=== PATIENT | female | born 1985 | race Caucasian/White ===

== ENCOUNTER 2018-02-22 15:14 | Emergency (ER) | payer OTHER ==
[2018-02-22] MEDS ORDERED: NA CHLORIDE 0.9% 1,000 ML ONE (15:30)
[2018-02-22 15:50] LABS: Absolute Lymphocytes (CBC) 2.4 K/uL (0.7-4.9); Absolute Monocytes 0.3 K/uL (0.1-1.3); Absolute Neutrophil 3.6 K/uL (1.8-8.0); Basophils % 0.8 % (0-1.3); Lymphocytes % 37.1 % (15.3-44.8); MPV 7.9 fL (7.6-11.3); Monocytes % 4.3 % (3.3-12.3); RBC Red Blood Cell Count 4.56 M/uL (3.86-4.86)
[2018-02-22 16:03] LABS: BUN Blood Urea Nitrogen 12 mg/dL (7-18); Bicarbonate 26 mmol/L (21-32); Glucose Level 94 mg/dL (74-106); Potassium 3.9 mmol/L (3.5-5.1); Sodium Level 142 mmol/L (136-145)
[2018-02-22 16:55] LABS: Urine Bacteria NONE SEEN /HPF (<20); Urine Culture Reflex Order NOT NEEDED; Urine RBC NONE SEEN /HPF (NONE SEEN)
--- NOTE | 2018-02-22 16:57 | EDPHYS ---
Physician Documentation [facility] Name: Lianne Teresa Age: 32 yrs Sex: Female : 1985 Arrival Date: 02/22/2018 Time: 15:11 Bed 6 Private MD: ED Physician Willy Martinez HPI: 02/22 15:54 This 32 yrs old Female presents to ER via EMS with complaints of Syncope. rn 15:54 The patient has experienced syncope. Onset: The symptoms/episode began/occurred just rn prior to arrival. Duration: This was a single episode. Associated injury: The patient did not suffer any apparent associated injury. Associated signs and symptoms: Pertinent positives: lightheadedness, Pertinent negatives: abdominal pain, chest pain, confusion, diaphoresis, headache, not seizure, shortness of breath, vomiting, weakness. Current symptoms: Currently, the patient is not experiencing any symptoms. The patient has not experienced similar symptoms in the past. Reports gave blood, stood up to get juice, got lightheaded and warm, then passed out, center called 911, now feels better, no pain, felt fine prior to giving blood. . 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 - Social history:: Smoking status: Patient/guardian denies using tobacco. - Ebola Screening: : No symptoms or risks identified at this time. - Family history:: not pertinent. - Hospitalizations: : No recent hospitalization is reported. ROS: 15:54 Constitutional: Negative for fever, chills, and weight loss, Eyes: Negative for injury, rn pain, redness, and discharge, Cardiovascular: Negative for chest pain, palpitations, and edema, Respiratory: Negative for shortness of breath, cough, wheezing, and pleuritic chest pain, Abdomen/GI: Negative for abdominal pain, nausea, vomiting, diarrhea, and constipation, MS/Extremity: Negative for injury and deformity, Skin: Negative for injury, rash, and discoloration, Neuro: Negative for headache, weakness, numbness, tingling, and seizure. Exam: 15:54 Constitutional: This is a well developed, well nourished patient who is awake, alert, rn and in no acute distress. Requesting food. Head/Face: Normocephalic, atraumatic. Eyes: Pupils equal round and reactive to light, extra-ocular motions intact. Lids and lashes normal. Conjunctiva and sclera are non-icteric and not injected. Cornea within normal limits. Periorbital areas with no swelling, redness, or edema. ENT: MMM, no stridor Cardiovascular: Regular rate and rhythm with a normal S1 and S2. No gallops, murmurs, or rubs. No JVD. No pulse deficits. Respiratory: Lungs have equal breath sounds bilaterally, clear to auscultation, No increased work of breathing, no retractions or nasal flaring. Abdomen/GI: Soft, non-tender, No evidence of tenderness throughout. Skin: Warm, dry with normal turgor. Normal color with no rashes, no lesions, and no evidence of cellulitis. MS/ Extremity: Pulses equal, no cyanosis. Neurovascular intact. Full, normal range of motion. Equal circumference. Neuro: Awake and alert, GCS 15, oriented to person, place, time, and situation. Cranial nerves II-XII grossly intact. Motor strength 5/5 in all extremities. Sensory grossly intact. Cerebellar exam normal. Vital Signs: 15:17 BP 96 / 73 Supine; Pulse 80 MON; Resp 18 S; Temp 98.0(O); Pulse Ox 100% on R/A; eb 15:19 Weight 90.72 kg; Height 5 ft. 3 in. (160.02 cm); Pain 0/10; sv 16:00 BP 107 / 72; Pulse 86; Resp 16; Pulse Ox 97% ; sv 16:50 BP 103 / 73; Pulse 91; Resp 16; Pulse Ox 100% ; sv 15:19 Body Mass Index 35.43 (90.72 kg, 160.02 cm) sv MDM: 15:13 Patient medically screened. jr8 16:55 Differential Diagnosis: idiopathic syncope, vasovagal episode. Data reviewed: vital rn signs, nurses notes, lab test result(s), EKG, and as a result, I will discharge patient. Counseling: I had a detailed discussion with the patient and/or guardian regarding: the historical points, exam findings, and any diagnostic results supporting the discharge/admit diagnosis, lab results, the need for outpatient follow up, to return to the emergency department if symptoms worsen or persist or if there are any questions or concerns that arise at home. Response to treatment: the patient's symptoms have markedly improved after treatment, the patient's symptoms have resolved after treatment, the patient's condition has returned to base line, the patient is now symptom free, and as a result, I will discharge patient. Special discussion: I discussed with the patient/guardian in detail that at this point there is no indication for admission to the hospital. It is understood, however, that if the symptoms persist or worsen the patient needs to return immediately for re-evaluation. 02/22 15:18 Order name: CBC with Diff rn 02/22 15:18 Order name: Basic Metabolic Panel rn 02/22 15:18 Order name: Urine Microscopic Only rn 02/22 15:19 Order name: CBC with Automated Diff; Complete Time: 16:54 EDMS 02/22 15:19 Order name: Basic Metabolic Panel; Complete Time: 16:54 EDMD 02/22 15:19 Order name: Urine Microscopic Only; Complete Time: 16:56 EDMD 02/22 15:18 Order name: EKG; Complete Time: 15:19 rn 02/22 15:18 Order name: EKG - Nurse/Tech; Complete Time: 15:43 rn 02/22 15:18 Order name: IV Start; Complete Time: 16:12 rn 02/22 15:18 Order name: Urine Test (obtain specimen); Complete Time: 17:09 rn 02/22 15:56 Order name: Glucose, Ancillary Testing; Complete Time: 16:54 EDMD 02/22 17:12 Order name: Urine Dipstick--Ancillary (enter results) bd Administered Medications: 15:40 Drug: NS 0.9% 1000 ml Route: IV; Rate: 1000 ml; Site: left hand; sv 16:45 Follow up: Response: No adverse reaction; IV Status: Completed infusion; IV Intake: sv 1000ml Disposition: 02/22/18 16:56 Discharged to Home. Impression: Syncope and collapse. - Condition is Stable. - Discharge Instructions: Syncope. - Medication Reconciliation Form, Thank You Letter, Antibiotic Education, Prescription Opioid Use form. - Follow up: Private Physician; When: As needed; Reason: Recheck today's complaints, Re-evaluation by your physician. - Problem is new. - Symptoms have improved. Signatures: Dispatcher [employer] Lianne Metcalf RN JV Willy Martinez MD MD rn Roszak, Josh, PA PA jr8 Lelo Campos RN RN tw2 Corrections: (The following items were deleted from the chart) 17:42 16:56 02/22/2018 16:56 Discharged to Home. Impression: Syncope and collapse. Condition tw2 is Stable. Forms are Medication Reconciliation Form, Thank You Letter, Antibiotic Education, Prescription Opioid Use. Follow up: Private Physician; When: As needed; Reason: Recheck today's complaints, Re-evaluation by your physician. Problem is new. Symptoms have improved. rn
--- NOTE | 2018-02-22 16:57 | ER ---
Nurse's Notes [facility] Name: Lianne Teresa Age: 32 yrs Sex: Female : 1985 Arrival Date: 02/22/2018 Time: 15:11 Bed 6 Private MD: Diagnosis: Syncope and collapse Presentation: 02/22 15:09 Presenting complaint: EMS states: was donating blood, stood up and had a syncopal sv episode for about 5-6 mins. On EMS arrival, pt was (+) TILT, BP now 102/60, SR, BS-96, 22G hand, IVF infusing. Transition of care: patient was not received from another setting of care. Onset of symptoms was February 22, 2018. Risk Assessment: Do you want to hurt yourself or someone else? Patient reports no desire to harm self or others. Initial Sepsis Screen: Does the patient meet any 2 criteria? No. Patient's initial sepsis screen is negative. Does the patient have a suspected source of infection? No. Patient's initial sepsis screen is negative. Care prior to arrival: Medication(s) given: Normal saline infusion, IV initiated. 22 GA, hand, Glucose check: 96. 15:09 Method Of Arrival: EMS: [facility] sv 15:09 Acuity: NOLVIA 2 sv Triage Assessment: 15:10 General: Appears in no apparent distress. comfortable, obese, Behavior is calm, sv cooperative, appropriate for age. Pain: Denies pain. EENT: No signs and/or symptoms were reported regarding the EENT system. Neuro: Level of Consciousness is awake, alert, obeys commands, Oriented to person, place, time, situation, Moves all extremities. Full function Reports "feeling tired". Respiratory: Respiratory effort is even, unlabored, Respiratory pattern is regular, symmetrical. Derm: Skin is pale. 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 - Social history:: Smoking status: Patient/guardian denies using tobacco. - Ebola Screening: : No symptoms or risks identified at this time. - Family history:: not pertinent. - Hospitalizations: : No recent hospitalization is reported. Screenin:20 Abuse screen: Denies threats or abuse. Denies injuries from another. Nutritional sv screening: No deficits noted. Tuberculosis screening: No symptoms or risk factors identified. Fall Risk None identified. Assessment: 15:40 Reassessment: Patient appears in no apparent distress at this time. Patient and/or sv family updated on plan of care and expected duration. Pain level reassessed. Patient is alert, oriented x 3, equal unlabored respirations, skin warm/dry/pink. 17:42 Reassessment: Patient appears in no apparent distress at this time. Patient and/or tw2 family updated on plan of care and expected duration. Pain level reassessed. Patient is alert, oriented x 3, equal unlabored respirations, skin warm/dry/pink. Patient states feeling better. Vital Signs: 15:17 BP 96 / 73 Supine; Pulse 80 MON; Resp 18 S; Temp 98.0(O); Pulse Ox 100% on R/A; eb 15:19 Weight 90.72 kg; Height 5 ft. 3 in. (160.02 cm); Pain 0/10; sv 16:00 BP 107 / 72; Pulse 86; Resp 16; Pulse Ox 97% ; sv 16:50 BP 103 / 73; Pulse 91; Resp 16; Pulse Ox 100% ; sv 15:19 Body Mass Index 35.43 (90.72 kg, 160.02 cm) sv ED Course: 15:09 Maintain EMS IV. Dressing intact. Site clean \\T\\ dry. Gauge \\T\\ site: 22G left hand. sv 15:11 Patient arrived in ED. sv 15:11 Lianne Burnette RN is Primary Nurse. sv 15:13 Rodolfo Adrian PA is PHCP. jr8 15:13 Willy Martinez MD is Attending Physician. jr8 15:14 Triage completed. sv 15:19 Arm band placed on. sv 15:20 Patient has correct armband on for positive identification. Bed in low position. Side sv rails up X2. Pulse ox on. NIBP on. Door closed. Warm blanket given. Head of bed elevated. 15:24 EKG done, by ED staff, reviewed by Willy Martinez MD. eb 15:35 Initial lab(s) drawn, by nh, sent to lab. eb 15:43 Basic Metabolic Panel Sent. eb 15:43 CBC with Automated Diff Sent. eb 16:12 CBC with Diff Sent. sv 16:12 Basic Metabolic Panel Sent. sv 17:08 Urine Microscopic Only Sent. sv 17:41 No provider procedures requiring assistance completed. IV discontinued, intact, tw2 bleeding controlled, No redness/swelling at site. Pressure dressing applied. Administered Medications: 15:40 Drug: NS 0.9% 1000 ml Route: IV; Rate: 1000 ml; Site: left hand; sv 16:45 Follow up: Response: No adverse reaction; IV Status: Completed infusion; IV Intake: sv 1000ml Intake: 16:45 IV: 1000ml; Total: 1000ml. sv Outcome: 16:56 Discharge ordered by . rn 17:42 Discharged to home ambulatory, with significant other. tw2 17:42 Condition: stable 17:42 Discharge instructions given to patient, significant other, Instructed on discharge instructions, follow up and referral plans. Demonstrated understanding of instructions, follow-up care. 17:42 Patient left the ED. tw2 Signatures: Lianne Burnette RN RN Willy Martinez MD MD rn Roszak, Josh, PA PA 8 Lelo Campos RN RN tw2 Penny Osorio
[2018-02-22 17:25] LABS: Urine Blood TRACE (NEG); Urine Glucose NEGATIVE (NEG); Urine Protein 1+ (NEG); Urine Specific Gravity 1.025 (1.005-1.030)
--- NOTE | 2018-02-22 18:55 | EKG ---
Test Date: 2018-02-22 Test Time: 15:24:04 Diving Board Assembler: ZHAO MEASUREMENT RESULTS: Intervals: Rate: 72 MA: 138 QRSD: 82 QT: 392 QTc: 429 [place]: P: 48 MA: 138 QRS: 64 T: 62 INTERPRETIVE STATEMENTS: Normal sinus rhythm Normal ECG No previous ECG available for comparison Electronically Signed On 02-22-18 18:54:41 [employer] ENGINE[employer] by Anderson Aldridge
[2018-02-23 12:55] LABS: Urine Specific Gravity 1.025 (1.005-1.030)
== END 2018-02-22 17:42 | disposition home or self-care (01) ==
LOC: ER 15:14
DX: R55 Syncope and collapse (principal)
CPT/HCPCS: 36415; 80048; 81003; 81015; 82962; 85025; 93005; 96360; 99284; J7030

== ENCOUNTER 2020-02-14 07:13 | Observation (INO) | payer OTHER ==
--- OUTSIDE RECORDS SUMMARY | 2020-02-14 07:16 | XMS REPORT | Summary of Care ---
:1985 Author Organization [facility] - Health Address [address] [place] [address] Care Team Providers Name Role Phone Luiz Hopson MD Primary Care Provider Encounter Details Date Type Department Care Team Description 02/01/2020 Orders Only [facility] Doctor Unassigned, No [address] [facility] [place] [place] [address] [address] [place] [address] Allergies No Known Allergiesdocumented as of this encounter (statuses as of 02/01/2020) Medications Medication Sig Dispensed Refills Start Date End Date Status TRINTELLIX 10 mg Take 1 tablet by 90 tablet 1 09/15/2019 Active TabIndications: mouth every Chronic depression morning. STOP FLUOXETINE. documented as of this encounter (statuses as of 02/01/2020) Active Problems Problem Noted Date Chronic anxiety 09/19/2019 Chronic depression 09/19/2019 PCOS (polycystic ovarian syndrome) 08/16/2019 Psychogenic nonepileptic seizure documented as of this encounter (statuses as of 02/01/2020) Social History Tobacco Use Types Packs/Day Years Used Date Never Smoker Smokeless Tobacco: Never Used Alcohol Use Drinks/Week oz/Week Comments Yes occasional Sex Assigned at Date Recorded Not on file COVID-19 Exposure Response Date Recorded In the last month, have you been in contact with No / Unsure 02/01/2020 10:27 AM DIABETES NURSE someone who was confirmed or suspected to have Coronavirus / COVID-19? documented as of this encounter Last Filed Vital Signs Not on filedocumented in this encounter Plan of Treatment Health Maintenance Due Date Last Done Comments VARICELLA VACCINES (1 of 2 - 10/31/1987 2-dose childhood series) DTaP,Tdap,and Td Vaccines (1 2005 - Tdap) PAP SMEAR 10/31/2007 INFLUENZA VACCINE (#1) 2019 Depression Screening 08/15/2020 08/16/2019, 08/16/2019 PNEUMOCOCCAL 0-64 YEARS Aged Out No longe r eligible based COMBINED SERIES on patient's age to complete this to [facility] documented as of this encounter Procedures Procedure Name Priority Date/Time Associated Diagnosis Comme nts CONSENT/REFUSAL FOR Routine 02/01/2020 11:25 AM DIABETES NURSE DIAGNOSIS AND TREATMENT documented in this encounter Results Not on filedocumented in this encounter Insurance Payer Benefit Plan / Subscriber ID Effective Dates Phone Addre ss Type Group [facility] [id number] [facility] t S documented as of this encounter
--- OUTSIDE RECORDS SUMMARY | 2020-02-14 07:16 | XMS REPORT | Summary of Care ---
:1985 Author Organization [facility] Address [address] [place] [id number] Care Team Providers Name Role Phone Luiz Hopson MD Primary Care Provider Reason for Visit Reason Comments Abdominal Pain Diarrhea dark stool Encounter Details Date Type Department Care Team Description 02/01/2020 Office Visit [facility] Family Luiz Hopson (Primary Dx); Medicine - Hernando Mcwilliams MD Upper abdominal pain [address] [place] [address] DR John HEATH, GARO Robbins [phone] Allergies No Known Allergiesdocumented as of this [...] with No / Unsure 02/01/2020 10:27 AM ASSESSMENT DIRECTOR someone who was confirmed or suspected to have Coronavirus / COVID-19? documented as of this encounter Last Filed Vital Signs Vital Sign Reading Time Taken Comments Blood Pressure 114/74 02/01/2020 10:40 AM ASSESSMENT DIRECTOR Pulse 80 02/01/2020 10:40 AM ASSESSMENT DIRECTOR Temperature 36.4 C (97.5 F) 02/01/2020 10:40 AM ASSESSMENT DIRECTOR Respiratory Rate - - Oxygen Saturation - - Inhaled Oxygen Concentration - - Weight 95.7 kg (211 lb) 02/01/2020 10:40 AM ASSESSMENT DIRECTOR Height 160 cm (5' 3") 02/01/2020 10:40 AM ASSESSMENT DIRECTOR Body Mass Index 37.38 02/01/2020 10:40 AM ASSESSMENT DIRECTOR documented in this encounter Progress Notes Luiz Hopson MD - 02/01/2020 10:45 AM CST CC: Chief Complaint Patient presents with Abdominal Pain Diarrhea dark stool HPI Lianne Teresa is a 34 year old F who presents for abdominal pain. Abdominal Pain Pain location: Epigastric Pain quality: aching and sharp Pain radiates to: R flank Pain severity: Severe (9/10) Onset quality: Sudden Duration: started yesterday. Timing: Constant Progression: Waxing and waning Chronicity: New Context: not recent travel, not sick contacts, not suspicious food intake and not trauma Relieved by: None tried Ineffective treatments: None tried Associated symptoms: anorexia, diarrhea, fatigue, melena and nausea Associated symptoms: no chills and no fever Risk factors comment: H/o bleeding ulcer in past but never had f/u EGD No Known Allergies Current Outpatient Medications: TRINTELLIX 10 mg Tab, Take 1 tablet by mouth every morning. STOP FLUOXETINE., Disp: 90 tablet, Rfl: 1 Past Medical History: Diagnosis Date Chronic anxiety 09/19/2019 Chronic depression 09/19/2019 PCOS (polycystic ovarian syndrome) 08/16/2019 Psychogenic nonepileptic seizure Past Surgical History: Procedure Laterality Date ABDOMINOPLASTY 07/2018 APPENDECTOMY 08/2012 SECTION REDUCTION MAMMOPLASTY 07/2018 Family History Problem Relation Age of Onset Depression Mother Social History Socioeconomic History Marital status: Spouse name: Not on file Number of children: Not on file Years of education: Not on file Highest education level: Not on file Occupational History Not on file Social Needs Financial resource strain: Not on file Food insecurity Worry: Not on file Inability: Not on file Transportation needs Medical: Not on file Non-medical: Not on file Tobacco Use Smoking status: Never Smoker Smokeless tobacco: Never Used Substance and Sexual Activity Alcohol use: Yes Comment: occasional Drug use: Not on file Sexual activity: Not on file Lifestyle Physical activity Days per week: Not on file Minutes per session: Not on file Stress: Not on file Relationships Social connections Talks on phone: Not on file Gets together: Not on file Attends taoist service: Not on file Active member of club or organization: Not on file Attends meetings of clubs or organizations: Not on file Relationship status: Not on file Intimate partner violence Fear of current or ex partner: Not on file Emotionally abused: Not on file Physically abused: Not on file Forced sexual activity: Not on file Other Topics Concern Not on file Social History Narrative 08/16/2019: with 2 children. She is a homemaker currently. Review of Systems Constitutional: Positive for fatigue. Negative for chills and fever. HENT: Negative. Eyes: Negative. Respiratory: Negative. Cardiovascular: Negative. Gastrointestinal: Positive for abdominal pain, anorexia, blood in stool, diarrhea, melena and nausea. Genitourinary: Negative. Musculoskeletal: Negative. Skin: Negative. Neurological: Negative. Psychiatric/Behavioral: Negative. Endocrine: Endocrine negative Vital signs BP 114/74 | Pulse 80 | Temp 36.4 C (97.5 F) (Oral) | Ht 5' 3" (1.6 m) | Wt 211 lb (95.7 kg)| LMP 01/01/2020 (Exact Date) | BMI 37.38 kg/m Physical Exam Vitals signs and nursing note reviewed. Exam conducted with a material disposition inspector present. Constitutional: General: She is in acute distress (uncomfortable due to pain, leaning over on the exam table). Appearance: She is well-developed. Cardiovascular: Rate and Rhythm: Normal rate and regular rhythm. Heart sounds: Normal heart sounds. Pulmonary: Effort: Pulmonary effort is normal. Breath sounds: Normal breath sounds. Abdominal: General: There is no distension. Palpations: Abdomen is soft. There is no mass. Tenderness: There is abdominal tenderness in the right upper quadrant and epigastric area. There is rebound. There is no right CVA tenderness, left CVA tenderness or guarding. Genitourinary: Rectum: Guaiac result positive (trace positive dark stool). Skin: General: Skin is warm and dry. LABS: CBC CMP No results found for: WBC No results found for: NA No results found for: RBC No results found for: K No results found for: PLT No results found for: CA No results found for: HGB No results found for: CL No results found for: HCT No results found for: BUN LIPID PANEL No results found for: CREAT No results found for: CHOL No results found for: GLU No results found for: LDL No results found for: TCO2 No results found for: HDL No results found for: ALB No results found for: TRIG No results found for: TPRO TSH No results found for: BILIT No results found for: TSH No components found for: BILIUNCOM No results found for: BILICONJ No results found for: ALT No results found for: AST No results found for: ALKPHOS ASSESSMENT/PLAN Diagnoses and all orders for this visit: ICD-10-CM ICD-9-CM 1. Melena K92.1 578.1 2. Upper abdominal pain R10.10 789.09 Patient's stool is only trace heme positive but is dark. She denies use of bismuth or iron. Her severe abdominal pain warrants evaluation at the ER. She will go to the ER by POV directly from our office. Report called to [facility] ER triage nurse. Plan of care, desired health behaviors, goals, Ddx, and any prescribed medications were discussed with the patient. This visit did not involve counseling and coordination that comprised more than 50% of the visit time. Education resources and self-management tools were provided/reviewed with the AVS. Patient/guardian/family verbalized understanding and agrees to the plan of care. Barriers to care: None. Ability to manage care: Good. Advanced care planning (living will) information was not given/offered to the patient to review for discussion at a future visit. If applicable, the [place] PMPdatabase was accessed to review any controlled substance prescription claims data. If the patient is taking prescribed medications, the [employer] prescription claims data in [employer] was reviewed to assess patient compliance with the medication treatment plan. Follow-up: Per ER/hospital discharge instructions. Follow-up sooner if any problems or concerns. SSMENT DIRECTOR documented in this encounter Plan of Treatment Health Maintenance Due Date Last Done Comments VARICELLA VACCINES (1 of 2 - 10/31/1987 2-dose childhood series) DTaP,Tdap,and Td Vaccines (1 2005 - Tdap) PAP SMEAR 10/31/2007 INFLUENZA VACCINE (#1) 2019 Depression Screening 08/15/2020 08/16/2019, 08/16/2019 PNEUMOCOCCAL 0-64 YEARS Aged Out No longe r eligible based COMBINED SERIES on patient's age to complete this to [facility] documented as of this encounter Results Not on filedocumented in this encounter Visit Diagnoses Diagnosis Melena - Primary Blood in stool Upper abdominal pain Abdominal pain, other specified site documented in this encounter Insurance Payer Benefit Plan / Subscriber ID Effective Dates Phone Addre ss Type Group [facility] [id number] [facility] P[facility] t S documented as of this encounter
--- OUTSIDE RECORDS SUMMARY | 2020-02-14 07:16 | XMS REPORT | Summary of Care ---
:1985 Author Organization [facility] Address [address] [place] [address] Care Team Providers Name Role Phone Luiz Hopson MD Primary Care Provider Reason for Visit Reason Comments Abdominal Pain Diarrhea dark stool Encounter Details Date Type Department Care Team Description 02/01/2020 Office Visit [facility] Luiz Hopson (Primary Dx); Medicine - Hernando Mcwilliams MD Upper abdominal pain [address] [place] [address] DR John HEATH, GARO Robbins [phone] Allergies No Known Allergiesdocumented as of this [...] with No / Unsure 02/01/2020 10:27 AM DIE BARBER someone who was confirmed or suspected to have Coronavirus / COVID-19? documented as of this encounter Last Filed Vital Signs Vital Sign Reading Time Taken Comments Blood Pressure 114/74 02/01/2020 10:40 AM DIE BARBER Pulse 80 02/01/2020 10:40 AM DIE BARBER Temperature 36.4 C (97.5 F) 02/01/2020 10:40 AM DIE BARBER Respiratory Rate - - Oxygen Saturation - - Inhaled Oxygen Concentration - - Weight 95.7 kg (211 lb) 02/01/2020 10:40 AM DIE BARBER Height 160 cm (5' 3") 02/01/2020 10:40 AM DIE BARBER Body Mass Index 37.38 02/01/2020 10:40 AM DIE BARBER documented in this encounter Progress Notes Luiz [...] file Gets together: Not on file Attends moravian service: Not on file Active member of [...] nursing note reviewed. Exam conducted with a plant and instrument engineer present. Constitutional: General: She is in acute [...] directly from our office. Report called to [facility] ER triage nurse. Plan of care, desired [...] at a future visit. If applicable, the [place] PMPdatabase was accessed to review any controlled substance prescription claims data. If the patient is taking prescribed medications, the [place] prescription claims data in [place] was reviewed to assess patient compliance with the medication treatment plan. Follow-up: Per ER/hospital discharge instructions. Follow-up sooner if any problems or concerns. BARBER documented in this encounter Plan of Treatment Health Maintenance Due Date Last Done Comments VARICELLA VACCINES (1 of 2 - 10/31/1987 2-dose childhood series) DTaP,Tdap,and Td Vaccines (1 2005 - Tdap) PAP SMEAR 10/31/2007 INFLUENZA VACCINE (#1) 2019 Depression Screening 08/15/2020 08/16/2019, 08/16/2019 PNEUMOCOCCAL 0-64 YEARS Aged Out No longe r eligible based COMBINED SERIES on patient's age to [facility] documented as of this encounter Results Not on filedocumented in this encounter Visit Diagnoses Diagnosis Melena - Primary Blood in stool Upper abdominal pain Abdominal pain, other specified site documented in this encounter Insurance Payer Benefit Plan / Subscriber ID Effective Dates Phone Addre ss Type Group [facility] [id number] [facility] PPO t S documented as of this encounter
--- OUTSIDE RECORDS SUMMARY | 2020-02-14 07:17 | XMS REPORT | Continuity of Care Document ---
:1985 Author Organization [facility] t Address [address] [place] [address] Care Team Providers Name Role Phone Missy Noe Attending Clinician Poppy Hopson MD Attending Clinician Doctor Unassigned, Name Attending Clinician Unavailable Problems This patient has no known problems. Allergies, Adverse Reactions, Alerts This patient has no known allergies or adverse reactions. Medications This patient has no known medications. Procedures This patient has no known procedures. Encounters Start End Encounter Admission Attending Care Care Encounter Source Date/Time Date/Time Type Type Clinicians Facility Department ID 2020-02-01 2020-02-01 Emergency Zaynab [facility] [id number] 11:33:00 17:38:00 Missy Villagomez [id number] [facility] [id number] [place] [id number] 2020-02-01 2020-02-01 Office Emiliana [facility] [id number] 10:27:58 11:16:55 Visit [facility] [id number] Hernando [id number] [place] [id number] [address]al [address] 2020-02-01 2020-02-01 Orders Doctor MENDOZA [id number] 00:00:00 00:00:00 Only Unassigned, ESPERANZA [id number] [place] [id number] [id number] Results This patient has no known results.
--- OUTSIDE RECORDS SUMMARY | 2020-02-14 07:17 | XMS REPORT | Summary of Care ---
:1985 Author Organization [facility] Address [address] [place] [address] Care Team Providers Name Role Phone Luiz Hopson MD Primary Care Provider Reason for Referral Radiology Services (STAT) Status Reason Specialty Diagnoses / Referred By Referred To Procedures Contact Contact New Request Diagnostic Diagnoses Abdominal pain, epigastric Missy Worthy Radiology Procedures US ABDOMEN LIMITED R, EMNP [address] [address] Reason for Visit Reason Comments Abdominal Pain Auth/Cert Status Reason Specialty Diagnoses / Referred By Referred To Procedures Contact Contact Emergency Medicine [facility] Em ergency Dept [address] [place] [address] Fax: Encounter Details Date Type Department Care Team Description 02/01/2020 Emergency [facility] Missy Worthy R, Chronic ch olecystitis (Primary Dx); Department EMNP Abdominal pain, epigastric [id number] [place] [id number] Allergies No Known Allergiesdocumented as of this encounter (statuses as of 02/01/2020) Medications Medication Sig Dispensed Refills Start Date End Date Status TRINTELLIX 10 mg Take 1 tablet 90 tablet 1 09/15/2019 Active TabIndications: Chronic by mouth every depression morning. STOP FLUOXETINE. pantoprazole 20 mg EC Take 1 tablet 30 tablet 0 02/01/202008/2020 Active tabletIndications: by mouth daily Abdominal pain, for 30 days. epigastric, Chronic cholecystitis documented as of this encounter (statuses as [...] in contact with No / Unsure 02/01/2020 11:29 AM DIE CASTING MACHINE OPERATOR someone who was confirmed or suspected to have Coronavirus / COVID-19? documented as of this encounter Last Filed Vital Signs Vital Sign Reading Time Taken Comments Blood Pressure 135/74 02/01/2020 5:00 PM DIE CASTING MACHINE OPERATOR Pulse 88 02/01/2020 5:00 PM DIE CASTING MACHINE OPERATOR Temperature 37.4 C (99.3 F) 02/01/2020 11:31 AM DIE CASTING MACHINE OPERATOR Respiratory Rate 18 02/01/2020 5:00 PM DIE CASTING MACHINE OPERATOR Oxygen Saturation 99% 02/01/2020 5:00 PM DIE CASTING MACHINE OPERATOR Inhaled Oxygen Concentration - - Weight 95.7 kg (211 lb) 02/01/2020 11:31 AM DIE CASTING MACHINE OPERATOR Height 160 cm (5' 3") 02/01/2020 11:31 AM DIE CASTING MACHINE OPERATOR Body Mass Index 37.38 02/01/2020 11:31 AM DIE CASTING MACHINE OPERATOR documented in this encounter Discharge Instructions Missy Cobb EMNP - 02/01/2020NO LIFE-THREATENING FINDINGS ON TODAY'S EXAM. SPECIAL INSTRUCTIONS: 1. Please contact both Dr Elias and Dr Rodriguez for follow up 2. Brown soft diet 3. May take 2 tylenol every 4 hours for pain 4. Avoid Advil, Motrin, ibuprofen, aspirin, Aleve, naproxen until cleared by Dr Elias, as they can make peptic ulcer disease worse 5. See attached information FOLLOW-UP RECOMMENDATIONS: RECOMMEND FOLLOW-UP WITH A PRIMARY CARE PROVIDER OR SPECIALIST IN 2-5 DAYS, ESPECIALLY IF NO IMPROVEMENT IN SYMPTOMS. TO FOLLOW-UP WITHIN THE [facility], TRY THESE OPTIONS (CLINIC APPOINTMENTS AVAILABLE ON [id number] BASIS): 1. SCHEDULE AN APPOINTMENT ONLINE AT [facility] 2. OR CALL THE [facility] AT OR 3. OR CALL YOUR [facility] PHYSICIAN'S OFFICE DIRECTLY IF YOU ARE ALREADY AN ESTABLISHED [facility] PATIENT. OR, YOU MAY FOLLOW-UP WITH A PROVIDER OF YOUR CHOICE, SUCH : 1. A PHYSICIAN OF YOUR CHOICE 2. [facility], . LOCATIONS IN [facility] 3. [facility], [address], [place]; [phone] RETURN TO ER FOR WORSENING OF SYMPTOMS. AttachmentsThe following attachments cannot be sent through Care Everywhere. Epigastric Pain (Uncertain Cause) (Bhutanese)Cholecystitis, Confirmed (Bhutanese) Peptic Ulcer Disease (All Causes) (Bhutanese)Pantoprazole tablets (Bhutanese) documented in this encounter ED Notes Muna Cid RN - 02/01/2020 11:29 AM CSTEpigastric pain that radiates to RUQ. Complaining of dark stools. States she came from clinic where she had "trace amounts of blood in my stool". She was sent for evaluation for stomach ulcer. documented in this encounter Miscellaneous Notes ED Nurse Note - Marquita Orona RN - 02/01/2020 5:37 PM CSTDischarge instructions/prscribed medications reviewed with pt with verbalized understanding. NAD, respirations even and unlabored, AOX4, ambulatory out of ED with a steady gait. CASTING MACHINE OPERATOR documented in this encounter Plan of Treatment Health Maintenance Due Date Last Done Comments VARICELLA VACCINES (1 of 2 - 10/31/1987 2-dose childhood series) DTaP,Tdap,and Td Vaccines (1 2005 - Tdap) PAP SMEAR 10/31/2007 INFLUENZA VACCINE (#1) 2019 Depression Screening 08/15/2020 08/16/2019, 08/16/2019 PNEUMOCOCCAL 0-64 YEARS Aged Out No longe r eligible based COMBINED SERIES on patient's age to complete this to pic documented as of this encounter Procedures Procedure Name Priority Date/Time Associated Comments Diagnosis US ABDOMEN LIMITED STAT 02/01/2020 4:25 PM Abdominal pain, Results for this DIE CASTING MACHINE OPERATOR epigastric procedure are i n the results section. URINALYSIS STAT 02/01/2020 1:11 PM Abdominal pain, Resul ts for this DIE CASTING MACHINE OPERATOR epigastric procedure are i n the results section. CBC WITH DIFF STAT 02/01/2020 1:11 PM Abdominal pain, Resu lts for this DIE CASTING MACHINE OPERATOR epigastric procedure are i n the results section. COMP. METABOLIC STAT 02/01/2020 1:11 PM Abdominal pain, Re sults for this PANEL ([id number]) DIE CASTING MACHINE OPERATOR epigastric procedure are in the results section. LIPASE STAT 02/01/2020 1:11 PM Abdominal pain, Resul ts for this DIE CASTING MACHINE OPERATOR epigastric procedure are i n the results section. POCT TEST ARTURO 02/01/2020 1:09 PM Abdominal pain , Results for this DIE CASTING MACHINE OPERATOR epigastric procedure are i n the results section. NOTICE OF PRIVACY Routine 02/01/2020 11:25 AM PRACTICES DIE CASTING MACHINE OPERATOR documented in this encounter Results US ABDOMEN LIMITED (02/01/2020 4:25 PM DIE CASTING MACHINE OPERATOR) Specimen Narrative Performed At HISTORY: Right upper quadrant and epigas tric pain. PACS/VR/DOSE COMPARISON: None TECHNIQUE: Liver as well as gallbladder were evaluated in multiple planes without and with color imaging. FINDINGS: Liver is approximately 17.2 cm and showed coarse and increased echotexture. Hepatic/portal venous systems appear galarza nt with hepatopedal portal venous flow confirmed. No fluid is seen in the right upper abdomen. No dilatation of the intrahepatic biliar y ducts. No abdominal aortic aneurysm. Visualized portions of the nascimento creas appear unremarkable. Visualized portions of the right kidney also appear unremarkable. Gallbladder showed mild diffuse thickening of the wall s and several mobile gallstones in the dependent portion of the lumen. Each individual gallstone is measuring 4 to 8 mm in size. Common h epatic duct is 3.9 mm. CONCLUSIONS: 1. Chronic cholecystitis with cholelithi asis. Normal size biliary ducts. 2. Upper normal size liver with coarse a nd increased echotexture, consistent with chronic primary liver disease includin g hepatic steatosis. Procedure Note [facility], Radiant Results Inft User - 2019 4:29 PM DIE CASTING MACHINE OPERATOR HISTORY: Right upper quadrant and epigastric pain. COMPARISON: None TECHNIQUE: Liver as well as gallbladder were evaluated in multiple planes without and with color imaging. FINDINGS: Liver is approximately 17.2 cm and showed coarse and increased echotexture. Hepatic/portal venous syste ms appear patent with hepatopedal portal venous flow confirmed. No fluid i s seen in the right upper abdomen. No dilatation of the intrahepatic biliar y ducts. No abdominal aortic aneurysm. Visualized portions of the nascimento creas appear unremarkable. Visualized portions of the right kidney also appear unremarkable. Gallbladder showed mild diffuse thickeni ng of the juarez and several mobile gallstones in the dependent portion of t he lumen. Each individual gallstone is measuring 4 to 8 mm in size. Common h epatic duct is 3.9 mm. CONCLUSIONS: 1. Chronic cholecystitis with cholelithi asis. Normal size biliary ducts. 2. Upper normal size liver with coarse a nd increased echotexture, consistent with chronic primary liver di sease including hepatic steatosis. Performing Organization Address [facility] Phone Number PACS/VR/DOSE URINALYSIS (02/01/2020 1:11 PM DIE CASTING MACHINE OPERATOR) Pathologist Sig nature APPEARANCE Slightly Cloudy (A) Clear [facility] COLOR Yellow Yellow [facility] PH 5.0 4.8 - 8.0 [facility] SP GRAVITY 1.025 1.003 - 1.030 [facility] GLU U QUAL Normal Normal [facility] BLOOD Negative Negative [facility] KETONES 5 mg/dL (A) Negative [facility] PROTEIN Negative Negative [facility] UROBILIN Normal Normal [facility] BILIRUBIN Negative Negative [facility] NITRITE Negative Negative [facility] LEUK RADU Negative Negative [facility] RBC/HPF 3 0 - 3 HPF [facility] WBC/HPF 2 0 - 5 HPF [facility] BACTERIA Few (A) Negative [facility] MUCOUS Moderate (A) Negative LPF [facility] SQ EPITH 19 (H) <=2 HPF [facility] Specimen Urine - URINE, CLEAN CATCH Performing Organization Address City/[facility]/Zipcode Phone Number [facility] CLIA: [id number] [place] [address] [place], [place] [address]vd LIPASE (02/01/2020 1:11 PM DIE CASTING MACHINE OPERATOR) Pathologist Sig nature LIPASE 47 0 - 220 U/L [facility] Specimen Blood - VENOUS Performing Organization Address City/State/Zipcode Phone Number [facility] CLIA: [id number] [place], [place] [id number] [address] [place] [address] COMP. METABOLIC PANEL ([id number]) (02/01/2020 1:11 PM DIE CASTING MACHINE OPERATOR) NA 136 135 - 145 [facility] mmol/L SERVICES K 4.8Comment: 3.5 - 5.0 [facility] Slight hemolysis mmol/L SERVICES CL 100 98 - 108 [facility] mmol/L SERVICES CO2 TOTAL 26 23 - 31 [facility] mmol/L SERVICES AGAP 10 2 - 16 [facility] SERVICES BUN 12Comment: Slight 7 - 23 mg/dL [facility] hemolysis SERVICES GLUCOSE 80 70 - 110 [facility] mg/dL SERVICES CREATININE 0.59 0.50 - 1.04 [facility] mg/dL SERVICES TOTAL BILI 0.9 0.1 - 1.1 [facility] mg/dL SERVICES CALCIUM 9.1 8.6 - 10.6 [facility] mg/dL SERVICES T PROTEIN 8.9 (H) 6.3 - 8.2 [facility] g/dL SERVICES ALBUMIN 4.9 3.5 - 5.0 [facility] g/dL SERVICES ALK PHOS 93Comment: Slight 34 - 122 U/L [facility] hemolysis SERVICES ALTv 76 (H) 5 - 35 U/L [facility] AST(SGOT) 74 (H)Comment: 13 - 40 U/L [facility] Slight hemolysis SERVICES eGFR Calculation 117.4 mL/min/1.73m2 [facility] (Non- SERVICES Icelandic) eGFR Calculation 142.3 mL/min/1.73m2 [facility] () SERVICES Specimen Blood - VENOUS Narrative Performed At Association of Glomerular Filtration Rate (GFR) and St aging [facility] of Kidney Disease* + + +------- ------ + | GFR (mL/min/1.73 m2) | With Kidney Damage | Wi thout Kidney Damage + + +------- ------ + | >90 | Stage one | Normal + + +------- ------ + | 60-89 | Stage two | Decreased GFR + + +------- ------ + | 30-59 | Stage three | Stage three + + +------- ------ + | 15-29 | Stage four | Stage four + + +------- ------ + | <15 (or dialysis) | Stage five | Stage five + + +------- ------ + *Each stage assumes the associated GFR level has been in effect for at least three months. Stages 1 to 5, wit h or without kidney disease, indicate chronic kidney disease. Notes: Determination of stages one and two (with eGFR >59mL/min/1.73 m2) requires estimation of kidney damag e for at least three months as defined by structural or func tional abnormalities of the kidney, manifested by either: Pathological abnormalities or Markers of kidney damage (including abnormalities in the composition of the blo od or urine or abnormalities in imaging tests) . Performing Organization Address City/State/Zipcode Phone Number [facility] CLIA: [id number] [place] [address] [place] [address] CBC WITH DIFF (02/01/2020 1:11 PM DIE CASTING MACHINE OPERATOR) Pathologist Sig nature WBC 6.40 4.30 - 11.10 [facility] 10*3/L SERVICES RBC 4.61 3.93 - 5.25 [facility] 10*6/L SERVICES HGB 11.1 (L) 11.6 - 15.0 [facility] g/dL SERVICES HCT 35.9 35.7 - 45.2 % [facility] MCV 77.9 (L) 80.6 - 95.5 fL [facility] MCH 24.1 (L) 25.9 - 32.8 pg [facility] MCHC 30.9 (L) 31.6 - 35.1 [facility] g/dL SERVICES RDW-SD 38.1 (L) 39.0 - 49.9 fL [facility] RDW-CV 13.6 12.0 - 15.5 % [facility] PLT 482 (H) 166 - 358 [facility] 10*3/L SERVICES MPV 9.2 (L) 9.5 - 12.9 fL [facility] NRBC/100 WBC 0.0 0.0 - 10.0 /100 [facility] WBCs SERVICES NRBC x10^3 <0.01 10*3/L [facility] GRAN MAT (NEUT) % 56.7 % [facility] IMM GRAN % 0.30 % [facility] LYMPH % 33.4 % [facility] MONO % 6.1 % [facility] EOS % 3.0 % [facility] BASO % 0.5 % [facility] GRAN MAT x10^3(ANC) 3.63 1.88 - 7.09 [facility] 10*3/uL SERVICES IMM GRAN x10^3 <0.03 0.00 - 0.06 [facility] 10*3/uL SERVICES LYMPH x10^3 2.14 1.32 - 3.29 [facility] 10*3/uL SERVICES MONO x10^3 0.39 0.33 - 0.92 [facility] 10*3/uL SERVICES EOS x10^3 0.19 0.03 - 0.39 [facility] 10*3/uL SERVICES BASO x10^3 0.03 0.01 - 0.07 [facility] 10*3/uL SERVICES Specimen Blood - VENOUS Performing Organization Address City/State/Zipcode Phone Number [facility] CLIA: [id number] [place], [place] [address] [address] [place] [address] POCT TEST (02/01/2020 1:09 PM DIE CASTING MACHINE OPERATOR) Pathologist Sig nature POCT PREG negative On board controls acceptable present with C Line POCT PREG LOT # [id number] POCT PREG TEST DATE 2021-10-24 Specimen Urine - URINE, CLEAN CATCH documented in this encounter Visit Diagnoses Diagnosis Chronic cholecystitis - Primary Abdominal pain, epigastric documented in this encounter Administered Medications Medication Order MAR Action Action Date Dose Rate Site NaCl 0.9% (NS) bolus New Bag 02/01/2020 1:16 PM DIE CASTING MACHINE OPERATOR 1,000 mL 99 9 mL/hr infusion 1,000 mL at 999 mL/hr, 1,000 mL, IV Infusion, ONCE, 1 dose, 02/01/20 at 1300, ARTURO documented in this encounter Insurance Payer Benefit Plan / Subscriber ID Effective Dates Phone Addre ss Type Group [id number] [id number] 2019-[facility] HMO/ PPO/[facility] PPO t S documented as of this encounter
[2020-02-14 07:28] LABS: Specific Gravity 1.025 (1.005-1.030)
[2020-02-14] MEDS ORDERED: CEFOXITIN/SWI 1gm 1 GM/10 ML SYR ONE (07:46)
[2020-02-14] MEDS ORDERED: Ringers Lactate 1,000 ML IV ONE (07:46)
[2020-02-14] MEDS ORDERED: ONDANSETRON 4 MG/2 ML VIAL ONE (08:29)
[2020-02-14] MEDS ORDERED: dexAMETHasone 10 MG/ML VIAL ONE (08:29)
[2020-02-14] MEDS ORDERED: LIDOCAINE 2% MPF 5 ML VIAL ONE (08:29)
[2020-02-14] MEDS ORDERED: FENTANYL CITR 100 MCG/2 ML ONE (08:29)
[2020-02-14] MEDS ORDERED: propofoL 200 MG/20 ML VIAL IV ONE (08:29)
[2020-02-14] MEDS ORDERED: ROCURONIUM 50 MG/5 ML VIAL IV ONE (08:29)
[2020-02-14] MEDS ORDERED: MIDAZOLAM HCL 2 MG/2 ML INJ ONE (08:29)
--- NOTE | 2020-02-14 08:58 | P.HP ---
Date of Service: 02/14/20 PC: This 34-year-old female presents for low elective laparoscopic cholecystectomy with cholangiogram. HPC: Patient been having recurrent right upper quadrant abdominal pain, radiating into her back, with the last couple of months. Has had a workup done which demonstrates she has cholelithiasis with chronic cholecystitis PMH: Negative PSHx: Soon have a hysterectomy SOC: No known allergies SYS REVIEW: No cough, wheeze, shortness of breath. No chest pain or palpitations. No urinary complaints O/E awake alert comfortable HEENT: Nonicteric Chest: Air entry equal bilaterally ABD: Mild right upper quadrant tenderness LOCO: Intact DATA: Has documented gallstone IMPRESSION: Chronic cholecystitis with cholelithiasis, biliary colic PLAN: I will take her the operating room for laparoscopic possible open cholecystectomy with a cholangiogram. The risks of this procedure have been discussed. The possibility of bleeding, infection, injury to bile ducts blood vessels intestines has been described. The possible need for an open and/or further surgeries and procedures was discussed. She understands and wants us to proceed.
[2020-02-14] MEDS ORDERED: GLYCOPYRROLATE 0.2 MG/ML SYR ONE (10:00)
[2020-02-14] MEDS ORDERED: NEOSTIGMINE 1 MG/ML -5 ML ONE (10:01)
[2020-02-14] MEDS ORDERED: KETOROLAC 30 MG/ML INJ ONE (10:01)
--- NOTE | 2020-02-14 10:03 | P.OP ---
Preoperative diagnosis: Chronic cholecystitis Postoperative diagnosis: The same Primary procedure: Laparoscopic cholecystectomy Secondary procedure: With cholangiogram Other procedure(s): Augustine block Anesthesia: General Estimated blood loss: Less than 10 cc Specimen: 1 gallbladder and contents Operative Technique: The patient was brought to the operating room and placed supine on the table. After the induction of adequate general endotracheal anesthesia, the area of the abdomen was prepped with a DuraPrep solution, and draped in the usual aseptic manner. A subumbilical incision was made. This brought down through the skin and subcutaneous tissue. The Visiport was used to enter the peritoneal cavity and created pneumoperitoneum to approximately 12 mm of mercury. Under direct vision a 5 mm trocar was placed in the upper midline, and 2 other 5 mm trocars on the right lateral side. The patient's head was then elevated and rolled towards the metal milling machine operator's side. We could see a chronically in this tendon a mildly inflamed gallbladder. A grasper was placed on the fundus of the gallbladder. Another 1 was placed down by Germán's pouch. Applying lateral traction we were able to dissect and expose the cystic duct and artery. Having obtained the critical view, Lisa artery was dealt with 1st. It was clipped and divided in the usual manner. A clip was then placed between the gallbladder and the cystic duct. An opening was made into the cystic duct. We attempted then to pass the cholangiocath into the cystic duct. We could feel if there were lot of bowel some the cystic duct. Injection had some extravasation but we were able to demonstrate the extrahepatic biliary tree. No filling defects were noted. We confirmed that the catheter was in the cystic duct. The catheter was then removed. Clips were now placed on the distal portion of the cystic duct. The cystic duct was then divided. The gallbladder was now dissected free from the liver bed, placed into an Endo-Catch, and brought out through the umbilical trocar site. The gallbladder fossa was inspected to ensure adequate hemostasis. It was irrigated with a saline solution and the irrigant aspirated from the peritoneal cavity. 0.25% Marcaine was aerosolized into the right upper quadrant and the gallbladder fossa. The umbilical trocar site was now approximated with an Endo Close and an absorbable sutures. The pneumoperitoneum was then collapsed, the suture tied, and praneeth applied to the skin. A further 0.25% Marcaine was injected around are incision sites. At the end of the procedure the patient was in a stable condition when sent to the recovery room. Needle sponge instrument count were correct. 1 specimen was sent for histopathology. Complications: None Transferred to: Recovery Room Condition: Good
--- NOTE | 2020-02-14 11:29 | RAD REPORT ---
EXAM DESCRIPTION: RADCholangiogram Oper-Xray Or02/14/2020 10:42 am CLINICAL HISTORY: Abdominal pain FINDINGS: The examination was performed by Dr. Pruett. The cystic duct was cannulated and contrast administered. Contrast flowed into the duodenum. The biliary tree is normal caliber. Fluoroscopy time 0.3 minutes. Two fluoroscopic spot images obtained
[2020-02-14] MEDS: ONDANSETRON 4 MG/2 ML VIAL IV PRN ×2 (11:49→17:38)
[2020-02-14] MEDS: MORPHINE 4 MG/ML SYR IV PRN (12:01)
[2020-02-14 12:29] VITALS: BMI 37.3
[2020-02-14] MEDS ORDERED: INFLUENZA VACCINE (for 3y+) 0.5 ML DOSE IMVAC ONE (14:00)
[2020-02-14] MEDS: HYDROCODONE/APAP 7.5/325 MG TAB PO PRN ×2 (16:20→22:56)
[2020-02-15 00:51] VITALS: O2SAT 97
[2020-02-15] MEDS: HYDROCODONE/APAP 7.5/325 MG TAB PO PRN (04:48)
[2020-02-15] MEDS: MORPHINE 4 MG/ML SYR IV PRN (06:22)
[2020-02-15 08:26] VITALS: BP 99/57; TEMP 97
== END 2020-02-15 12:07 | disposition home or self-care (01) ==
LOC: OR 07:13 → 2ND 11:22
PROVIDERS: ADMIT Surgery; ATTEND Surgery
PROC: 0FT44ZZ Resection of Gallbladder, Percutaneous Endoscopic Approach (ICD-10-PCS; principal; 2020-02-14 08:30)
DX: K80.10 Calculus of gallbladder with chronic cholecystitis without obstruction (principal); Z20.828 Contact with and (suspected) exposure to other viral communicable diseases; R06.83 Snoring
CPT/HCPCS: 81025; 88304; 74300; 94010; 47563; J2704; J2250; J3010; J1100; J2710; J7120; J2405 ×3